=== PATIENT | male | born 1975 | race Caucasian/White ===

== ENCOUNTER 2018-08-28 10:03 | Emergency (ER) | payer BC ==
--- NOTE | 2018-08-28 10:14 | EDM.PDOC ---
ED HPI GENERAL MEDICAL PROBLEM - General Chief Complaint: Abdominal Pain Stated Complaint: BAD STOMACH PAINS [id number] Time Seen by Provider: 08/28/18 10:14 Source of Information: Reports: Patient, RN, RN Notes Reviewed History Limitations: Reports: No Limitations - History of Present Illness INITIAL COMMENTS - FREE TEXT/NARRATIVE: Pt to ER with c/o epigastric stomach pains which he describes as twisting shooting pain, rating 6/10. Began yesterday AM, constant today, yesterday was intermittent. He admits to nausea without vomiting, and watery diarrhea for 1-2 days. He denies vomiting, fever, chills, CP, SOB. He states he no longer has his appendix, but he does still have his gallbladder. He states he had dental work on 08/16/18 and has been on Amoxicillin since that date. He states he has 6- 8 pills left (3-4 days left). Onset: Sudden Onset Date: 08/27/18 Duration: Constant Location: Reports: Abdomen Quality: Reports: Sharp Severity: Moderate Improves with: Reports: None Worsens with: Reports: None Associated Symptoms: Reports: Nausea/Vomiting Upper Abdominal Pain Score (Numeric/FACES): 6 - Related Data Allergies Allergy/AdvReac Type Severity Reaction Status Date / Time No Known Allergies Allergy Verified 08/28/18 10:18 Home Meds: Home Meds . [Unable to Verify Home Med List] 08/28/18 [History] ED ROS GENERAL - Review of Systems Review Of Systems: ROS reveals no pertinent complaints other than HPI. ED EXAM, GI/ABD - Physical Exam Exam: See Below Exam Limited By: No Limitations General Appearance: Alert, WD/WN, Mild Distress Eyes: Bilateral: Normal Appearance Ears: Normal External Exam, Hearing Grossly Normal Nose: Normal Inspection Throat/Mouth: Normal Inspection, Normal Voice, No Airway Compromise. No: Normal Teeth Head: Atraumatic, Normocephalic Neck: Normal Inspection, Supple, Non-Tender, Full Range of Motion Respiratory/Chest: No Respiratory Distress, Lungs Clear, Normal Breath Sounds, No Accessory Muscle Use, Chest Non-Tender Cardiovascular: Normal Peripheral Pulses, Regular Rate, Rhythm, No Edema, No Gallop, No JVD, No Murmur, No Rub GI/Abdominal Exam: Normal Bowel Sounds, No Organomegaly, Distended, Tender (RUQ , LUQ, LLQ, RLQ, epigastrum) (Male) Exam: Deferred Rectal (Males) Exam: Deferred Back Exam: Normal Inspection, Full Range of Motion, NT Extremities: Normal Inspection, Normal Range of Motion, Non-Tender, Normal Capillary Refill, No Pedal Edema Neurological: Alert, Oriented, CN II-XII Intact, Normal Cognition, Normal Gait, Normal Reflexes, No Motor/Sensory Deficits Psychiatric: Normal Affect, Normal Mood Skin Exam: Warm, Dry, Intact, Normal Color, No Rash Lymphatic: No Adenopathy Course - Vital Signs Last Recorded V/S: Last Vital Signs Temp 99.5 F 08/28/18 10:14 Pulse 114 H 08/28/18 10:14 Resp 16 08/28/18 10:14 BP 175/111 H 08/28/18 10:14 Pulse Ox 97 08/28/18 10:14 - Orders/Labs/Meds Labs: Laboratory Tests 08/28/18 08/28/18 08/28/18 Range/Units 10:25 10:25 11:05 WBC 8.0 (5.0-10.0) 10^3/uL RBC 5.58 (4.6-6.2) 10^6/uL Hgb 16.9 (14.0-18.0) g/dL Hct 48.2 (40.0-54.0) % MCV 86.4 (80-100) fL MCH 30.3 (27.0-34.0) pg MCHC 35.1 H (33.0-35.0) g/dL Plt Count 191 (150-450) 10^3/uL Neut % (Auto) 65.0 (42.2-75.2) % Lymph % (Auto) 21.5 (20.5-50.1) % Meagher % (Auto) 11.6 H (2-8) % Eos % (Auto) 1.8 (1.0-3.0) % Baso % (Auto) 0.1 (0.0-1.0) % Sodium 134 L (135-145) mmol/L Potassium 3.7 (3.6-5.0) mmol/L Chloride 98 L (101-111) mmol/L Carbon Dioxide 23.0 (21.0-31.0) mmol/L Anion Gap 16.7 BUN 14 (7-18) mg/dL Creatinine 0.8 (0.6-1.3) mg/dL Est Cr Clr Drug Dosing 108.55 mL/min Estimated GFR (MDRD) > 60 BUN/Creatinine Ratio 17.50 Glucose 126 H (74-105) mg/dL Calcium 8.8 (8.4-10.2) mg/dl Total Bilirubin 0.6 (0.2-1.0) mg/dL AST 27 (10-42) IU/L ALT 25 (10-60) IU/L Alkaline Phosphatase 58 (42-121) IU/L Total Protein 6.8 (6.7-8.2) g/dl Albumin 4.0 (3.2-5.5) g/dl Globulin 2.8 Albumin/Globulin Ratio 1.43 Amylase 35 (28-100) U/L Lipase 31 (22-51) U/L Urine Color Yellow (YELLOW) Urine Appearance Clear (CLEAR) Urine pH 5.5 (5.0-9.0) Ur Specific [place] >= 1.030 (1.005-1.030) Urine Protein Trace H (NEGATIVE) Urine Glucose (UA) Negative (NEGATIVE) Urine Ketones Negative (NEGATIVE) Urine Occult Blood Negative (NEGATIVE) Urine Nitrite Negative (NEGATIVE) Urine Bilirubin Negative (NEGATIVE) Urine Urobilinogen 0.2 (0.2-1.0) mg/dL Ur Leukocyte Esterase Negative (NEGATIVE) Urine RBC 0-5 /HPF Urine WBC 0-5 (0-5/HPF) /HPF Ur Epithelial Cells Few /HPF Urine Bacteria Rare (0-FEW/HPF) /HPF Hyaline Casts Rare H /LPF Urine Mucus Few H /LPF Meds: Medications Discontinued Medications Generic Name Dose Route Start Last Admin Trade Name Freq PRN Reason Stop Dose Admin Iopamidol 100 ml 08/28/18 11:48 08/28/18 11:58 Isovue-300 (61%) IVPUSH 08/28/18 11:49 100 ml ONETIME ONE Administration - Radiology Interpretation Free Text/Narrative:: Abdomen/Pelvis CT with contrast: Terminal ileitis (Crohn's disease? Lymphoma?). Fatty liver. Otherwise unremarkable See rad report Departure - Departure Time of Disposition: 12:29 Disposition: Home, Self-Care 01 Condition: Fair Clinical Impression: Terminal ileitis Qualifiers: Digestive disease complication type: unspecified complication Qualified Code(s) : K50.019 - Crohn's disease of small intestine with unspecified complications Diarrhea Qualifiers: Diarrhea type: unspecified type Qualified Code(s): R19.7 - Diarrhea, unspecified - Discharge Information *PRESCRIPTION DRUG MONITORING PROGRAM REVIEWED*: No *COPY OF PRESCRIPTION DRUG MONITORING REPORT IN PATIENT JANNETTE: No Instructions: Food Choices to Help Relieve Diarrhea, Adult, Abdominal Pain, Adult, [id number] Forms: ED Department Discharge Additional Instructions: See Dr. Lanier today (08/28/18) at 4:15pm. Stop taking Amoxicillin
[2018-08-28 10:57] LABS: ANION GAP 16.7; CHLORIDE,CL 98 mmol/L (101-111); SODIUM,NA 134 mmol/L (135-145)
[2018-08-28] MEDS: Iopamidol 612 MG/ML 100 ML Bottle IVPUSH ONE (11:58)
--- NOTE | 2018-08-28 12:14 | CT ---
Clinical history: 42-year-old 246 pound male "smoker" with stomach pain and "watery diarrhea" (previous appendectomy). Scan technique: Volume acquisition of data unenhanced CT scan of the abdomen and pelvis obtained without oral contrast but during the intravenous administration 100 cc nonionic Isovue contrast (3 cc/s via injector) while patient was lying supine Siemens multi slice scanner [place], [place]. All data archived in the PACS system for storage, reformatting axial/sagittal/coronal planes and study. Interpretation: 1. Contracted gallbladder RUQ, fatty liver, stomach, spleen, pancreas and adrenal glands anatomically correct and otherwise unremarkable i.e. negative. No ventral wall or inguinal hernias. Normal cardiac silhouette. 2. Normal reniform size, axis and configuration. No sign of renal cortical mass lesion, nephrolithiasis or obstructive uropathy. Symmetrically distended normal urinary bladder. No intraluminal calcifications. 3. *Abnormal appearance (edematous wall, "cobblestone", and focal dilatation) isolated loop of terminal ileum, measuring over 8.5 cm length from the ileocecal valve. No associated abscess or other inflammatory changes. No signs of proximal mechanical bowel obstruction, inflammatory "dirty" peritoneal fat, or large bowel (skip lesions) inflammatory changes. 4. No mesenteric or retroperitoneal lymphadenopathy; no pelvic or abdominal mass lesion, ascites or free intraperitoneal air. 5. Normal caliber aortoiliac vessels. No aneurysm or dissection. Normal lumbar spine. Lung bases clear. CONCLUSION: Terminal ileitis (Crohn's disease? Lymphoma?). Fatty liver. CT scan abdomen/pelvis otherwise unremarkable.
== END 2018-08-28 12:46 | disposition home or self-care (01) ==
LOC: DL.ED 10:03
DX: K50.019 Crohn's disease of small intestine with unspecified complications (principal)
CPT/HCPCS: 36415; 74177; 80053; 81001; 82150; 83690; 85025; 99284; Q9967

== ENCOUNTER 2018-11-08 12:06 | Emergency (ER) | payer BC ==
--- NOTE | 2018-11-08 12:49 | CR ---
Clinical history: 43-year-old male pain and swelling right knee. Interpretation: Prominent bone spur arising off the anterior tibial tubercle proximal right tibia. No foreign bodies. Mild chondromalacia i.e. reactive sclerosis with early spur formation patellofemoral surface of patella. No sign of pathologic skeletal lesion, right knee fracture, dislocation or radiopaque loose joint body. No joint effusion or arthritic degenerative right knee joint changes. CONCLUSION: No joint effusion, fracture or dislocation.
--- NOTE | 2018-11-08 12:56 | EDM.PDOC ---
ED HPI GENERAL MEDICAL PROBLEM - General Chief Complaint: Lower Extremity Injury/Pain Stated Complaint: RT KNEE PAIN Time Seen by Provider: 11/08/18 12:55 Source of Information: Reports: Patient, RN, RN Notes Reviewed History Limitations: Reports: No Limitations - History of Present Illness INITIAL COMMENTS - FREE TEXT/NARRATIVE: Pt presents to ER with c/o right knee pain, swelling, and buckling. The pain as progressively worsened over the past week. Pt is on his feet a lot, but denies any specific injury. He denies any redness, increased warmth, or focal angela tenderness. He reports most of his pain is overlying the medial knee. Onset: Gradual Duration: Week(s): (1) Location: Reports: Lower Extremity, Right Quality: Reports: Ache Severity: Moderate Improves with: Reports: Immobilization, Rest Worsens with: Reports: Movement Associated Symptoms: Reports: No Other Symptoms - Related Data Allergies Allergy/AdvReac Type Severity Reaction Status Date / Time No Known Allergies Allergy Verified 11/08/18 12:24 Home Meds: Home Meds Simvastatin 20 mg PO BEDTIME 11/08/18 [History] Past Medical History Cardiovascular History: Reports: High Cholesterol Endocrine/Metabolic History: Reports: Obesity/BMI 30+ - Past Surgical History GI Surgical History: Reports: Appendectomy Social & Family History - Family History Family Medical History: Noncontributory - Caffeine Use Caffeine Use: Reports: Soda - Living Situation & Occupation Living situation: Reports: Occupation: Employed Review of Systems - Review of Systems Review Of Systems: ROS reveals no pertinent complaints other than HPI. ED EXAM, GENERAL - Physical Exam Exam: See Below Exam Limited By: No Limitations General Appearance: Alert, WD/WN, No Apparent Distress Head: Atraumatic, Normocephalic Neck: Normal Inspection Respiratory/Chest: No Respiratory Distress Cardiovascular: Normal Peripheral Pulses, Regular Rate, Rhythm Back Exam: Normal Inspection Extremities: No Pedal Edema, Joint Swelling, Limited Range of Motion (Rt knee with near full ROM, but with report of soreness), Other (Right knee with medial tenderness, small joint effusion, no erythema or increased warmth) Neurological: Alert, Oriented, No Motor/Sensory Deficits Psychiatric: Normal Mood Skin Exam: Warm, Dry, Intact, Normal Color, No Rash Course - Orders/Labs/Meds Orders: Active Orders 24 hr Category Date Time Status Immobilizer [RC] ASDIRECTED Care 11/08/18 13:08 Ordered DME for Discharge [COMM] Routine Oth 11/08/18 13:08 Ordered - Radiology Interpretation Free Text/Narrative:: XR Rt knee: no acute fractures, no visible effusion per Rad. report. Departure - Departure Time of Disposition: 13:09 Disposition: Home, Self-Care 01 Condition: Good Clinical Impression: Right knee buckling, Effusion, right knee Right knee pain Qualifiers: Chronicity: acute Qualified Code(s): M25.561 - Pain in right knee - Discharge Information *PRESCRIPTION DRUG MONITORING PROGRAM REVIEWED*: No *COPY OF PRESCRIPTION DRUG MONITORING REPORT IN PATIENT JANNETTE: No Instructions: Knee Pain, Adult, Knee Effusion Forms: ED Department Discharge Additional Instructions: Rx: Naprosyn 500mg Rest, ice packs, and elevated right knee to reduce pain and swelling. Use right knee immobilzer and crutches as needed for comfort. Follow up in clinic next week with Dr. Lerma or one of his associates for recheck and consideration of referral to an data warehousing specialist. - My Orders Last 24 Hours: My Active Orders 11/08/18 13:08 Immobilizer [RC] ASDIRECTED DME for Discharge [COMM] Routine - Assessment/Plan Last 24 Hours: My Active Orders 11/08/18 13:08 Immobilizer [RC] ASDIRECTED DME for Discharge [COMM] Routine
== END 2018-11-08 13:40 | disposition home or self-care (01) ==
LOC: DL.ED 12:06
DX: M25.461 Effusion, right knee (principal)
CPT/HCPCS: 73562-RT; 99283-25

== ENCOUNTER 2021-01-24 05:10 | Day surgery (SDC) | payer MEDICAID ==
[2021-01-24] MEDS ORDERED: fentaNYL 100 MCG/2 ML SDV IV ONE ×3 (05:11→06:37)
[2021-01-24] MEDS ORDERED: Midazolam 1 MG/ML 2 ML SDV IV ONE ×7 (05:11→06:45)
[2021-01-24] MEDS ORDERED: Dextrose 5%-0.45% NaCl 1,000 ML IV SCH (05:30)
[2021-01-24] MEDS ORDERED: fentaNYL 100 MCG/2 ML SDV ONE (05:58)
[2021-01-24] MEDS ORDERED: Midazolam 1 MG/ML 2 ML SDV ONE (05:58)
--- NOTE | 2021-01-24 08:38 | OR ---
DATE: 01/24/2021 PROCEDURES: Total colonoscopy, terminal ileoscopy, NBI, cold snare polypectomy, and multiple pinch biopsies. INSTRUMENT USED: PCF-H190DL Olympus video colonoscope. PREMEDICATIONS: Fentanyl 100 mcg intravenous, Versed 4 mg intravenous, nasal O2 cannula. The procedure was done under pulse oximetry, BP recording, and kettle cook. INDICATION: The patient with chronic persistent diarrhea, unexplained and not responsive to medical measures. Colonoscopic examination is done for detection of any polypoid lesions and removal, biopsies to be obtained for microscopic colitis, endoscopic hemostasis therapy if needed. DESCRIPTION OF PROCEDURE: Initial rectal exam was unremarkable. Rigid anoscopy was normal. The colonoscope was passed with ease up to and beyond the ileocecal junction to visualize normal-appearing terminal ileum, NBI views were obtained, photographs were taken. Multiple pinch biopsies were obtained and sent for any evidence of celiac disease. No bleeding was noted from any of the visualized areas at the commencement of the examination. The bowel preparation was found to be adequate, [place] scale 3 in all the regions, total score 9. No stricture. No vascular ectasia. No large isolated ulcerations seen. No evidence of diffuse inflammatory bowel disease in the form of friability, contact bleeding, or ulcerations. Probing the proximal sides of folds and flexures using adequate distention and clearing up the stool material, withdrawal of the scope was made. In the mid descending colon area, diminutive benign-appearing polyp was noted, cold snare polypectomy was done. The tissue was retrieved and sent for histopathology. Multiple pinch biopsies were taken from the normal appearing mucosa of the transverse colon, descending colon, and rectum, and sent for any histopathologic evidence of microscopic colitis. No bleeding was noted from any of the visualized areas at the completion of examination. IMPRESSION: Descending colon polyp. The patient tolerated the procedure well. [facility] /[id number]
== END 2021-01-24 09:05 | disposition home or self-care (01) ==
LOC: DL.ENDO 05:10
PROVIDERS: ATTEND Internal Medicine Gastroenterology
DX: D12.4 Benign neoplasm of descending colon (principal); K52.9 Noninfective gastroenteritis and colitis, unspecified; E78.00 Pure hypercholesterolemia, unspecified; G47.33 Obstructive sleep apnea (adult) (pediatric); E66.09 Other obesity due to excess calories; Z68.42 Body mass index [BMI] 45.0-49.9, adult
CPT/HCPCS: 45380; 45385; J2250; J3010; J7042

== ENCOUNTER 2022-04-11 18:50 | Emergency (ER) | payer MEDICAID | END 2022-04-11 22:15 | disposition home or self-care (01) | LOC: DL.ED 18:50 | DX: S90.32XA Contusion of left foot, initial encounter (principal); M77.32 Calcaneal spur, left foot; W11.XXXA Fall on and from ladder, initial encounter | CPT/HCPCS: 73630-LT; 99283 ==

== ENCOUNTER 2025-03-13 11:44 | Emergency (ER) | payer SELFPAY ==
[2025-03-13] MEDS: Sodium Chloride 0.9% 10 ML Syringe FLUSH PRN (12:13)
[2025-03-13 12:26] LABS: BASOPHILS PERCENT AUTO 0.5 % (0.0-1.0); EOSINOPHILS PERCENT AUTO 1.6 % (1.0-3.0); LYMPHOCYTES PERCENT AUTO 21.1 % (20.5-50.1); MONOCYTES PERCENT AUTO 7.1 % (2-8); NEUTROPHILS PERCENT AUTO 69.7 % (42.2-75.2); PLATELET COUNT,PLT 204 10^3/uL (150-450); RED BLOOD CELL COUNT 5.25 10^6/uL (4.6-6.2); WHITE BLOOD CELL COUNT,WBC 10.9 10^3/uL (5.0-10.0)
[2025-03-13 12:44] LABS: INR 1.1 (0.9-1.2); PTT,PARTIAL THROMBOPLSTIN TIME 21.2 SEC (22.0-34.0)
[2025-03-13 12:48] LABS: A/G RATIO 0.9; ALANINE AMINOTRANSFERASE,ALT 29.0 U/L (16-63); ASPARTATE AMNIOTRANSFERASE,AST 18.0 U/L (15-37); BILIRUBIN TOTAL 0.8 mg/dL (0.2-1.0); BLOOD UREA NITROGEN,BUN 15.0 mg/dL (7-18); CARBON DIOXIDE,CO2 33.0 mmol/L (21-32); CHLORIDE,CL 102.0 mmol/L (98-107); CREATININE 0.98 mg/dL (0.70-1.30); EST CRCL DRUG DOSING (CG) 82.28 mL/min; GLUCOSE RANDOM 199.0 mg/dL (70-99); POTASSIUM,K 3.5 mmol/L (3.5-5.1); PROTEIN TOTAL,TP 7.1 g/dL (6.4-8.2); SODIUM,NA 142.0 mmol/L (136-145)
[2025-03-13 12:49] LABS: ESTIMATED GFR 95.0 mL/min (>=60)
[2025-03-13 12:54] LABS: B-TYPE NATRIURETIC PEPTIDE,BNP 167.0 pg/ml (0-100)
[2025-03-13] MEDS: Iopamidol 755 Mg/ML 100 ML Bottle IVPUSH ONE (13:35)
[2025-03-13] MEDS: Magnesium Sulfate 2 GM/50 mL 2 GM in Premix Bag 1 BAG IV ONE (13:38)
[2025-03-13] MEDS: Metoprolol Tartrate 5 MG/5 ML SDV IVPUSH ONE ×2 (14:56→15:21)
== END 2025-03-13 16:28 | disposition home or self-care (01) ==
LOC: DL.ED 11:44
DX: I16.0 Hypertensive urgency (principal); I10 Essential (primary) hypertension; E78.5 Hyperlipidemia, unspecified; E78.00 Pure hypercholesterolemia, unspecified; Z79.899 Other long term (current) drug therapy
CPT/HCPCS: 36415; 71275; 80053; 83735; 83880; 84484; 85025; 85379; 85610; 85730; 86140; 93005; 96365; 96366; 96368; 96375; 99285; J2305; J3475; J3490; Q9967

== ENCOUNTER 2025-03-17 08:49 | Emergency (ER) | payer SELFPAY ==
[2025-03-17 09:32] LABS: BASOPHILS PERCENT AUTO 0.5 % (0.0-1.0); EOSINOPHILS PERCENT AUTO 1.5 % (1.0-3.0); LYMPHOCYTES PERCENT AUTO 23.8 % (20.5-50.1); MONOCYTES PERCENT AUTO 6.6 % (2-8); NEUTROPHILS PERCENT AUTO 67.6 % (42.2-75.2); PLATELET COUNT,PLT 216 10^3/uL (150-450); RED BLOOD CELL COUNT 5.33 10^6/uL (4.6-6.2); WHITE BLOOD CELL COUNT,WBC 11.0 10^3/uL (5.0-10.0)
[2025-03-17 09:48] LABS: INR 1.1 (0.9-1.2)
[2025-03-17 09:52] LABS: B-TYPE NATRIURETIC PEPTIDE,BNP 148.0 pg/ml (0-100)
[2025-03-17 09:56] LABS: A/G RATIO 0.9; ALANINE AMINOTRANSFERASE,ALT 38.0 U/L (16-63); ASPARTATE AMNIOTRANSFERASE,AST 26.0 U/L (15-37); BILIRUBIN TOTAL 0.7 mg/dL (0.2-1.0); BLOOD UREA NITROGEN,BUN 16.0 mg/dL (7-18); CARBON DIOXIDE,CO2 28.0 mmol/L (21-32); CHLORIDE,CL 99.0 mmol/L (98-107); CREATININE 0.95 mg/dL (0.70-1.30); EST CRCL DRUG DOSING (CG) 78.76 mL/min; GLUCOSE RANDOM 166.0 mg/dL (70-99); POTASSIUM,K 3.3 mmol/L (3.5-5.1); PROTEIN TOTAL,TP 7.3 g/dL (6.4-8.2); SODIUM,NA 127.0 mmol/L (136-145)
[2025-03-17 09:58] LABS: ESTIMATED GFR 98.0 mL/min (>=60)
[2025-03-17] MEDS: Potassium Chloride 10 MEQ Tab.ER PO ONE (11:52)
[2025-03-17] MEDS: Furosemide 20 MG/2 ML VIAL IVPUSH ONE (12:27)
[2025-03-17] MEDS: Enalaprilat 1.25 MG/ML SDV IVPUSH ONE (15:28)
== END 2025-03-17 17:50 ==
LOC: DL.ED 08:49
DX: R07.9 Chest pain, unspecified (principal); I10 Essential (primary) hypertension; E78.00 Pure hypercholesterolemia, unspecified; E66.9 Obesity, unspecified; Z79.899 Other long term (current) drug therapy; Z90.49 Acquired absence of other specified parts of digestive tract; Z68.42 Body mass index [BMI] 45.0-49.9, adult
CPT/HCPCS: 36415; 71045; 80053; 83880; 84484; 85025; 85610; 93005; 96374; 96375; 99285; A9270; J1938; J3490